=== PATIENT | male | born 1965 | race Two or more races ===

== ENCOUNTER 2020-02-25 14:47 | Emergency (ER) | payer SELFPAY ==
[~2020-02-25] VITALS: Ht 177.8 cm; Wt 95.4 kg
--- NOTE | 2020-02-25 15:24 | PHYS DOC ---
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 Patient reports having left-sided rib chest pain for approximately 4 years, he has been seen by chiropractors and various clinics over the years and has been told that this is musculoskeletal pain. 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 Patient states he had just taken his lisinopril prior to arrival to his clinic visit. Patient states that the clinic staff was concerned about his hypertension and sent him straight to the emergency department today. Patient reports that he does have left-sided chest pain that has been going on for greater than 40 years he currently rates at a 4/10 on a 1-10 pain scale, patient states that if he does not take Motrin his pain will increase to a 6/10 with a 10 pain scale. Patient denies any shortness of breath, chest palpitations, diaphoresis, nausea, vomiting, diarrhea, cough, recent fever chills, congestion, or nasal congestion. Patient denies any sore throat. Patient denies any dizziness. 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 Patient denies any numbness or tingling to his extremities, patient denies any weaknesses, patient denies being around anybody with the COVID-19 virus and does not wish to be checked today for the COVID-19 virus. Patient denies any homicidal or suicidal ideation. Patient reiterates that this is the same pain that he has had for the past 4 years. Review of Systems: Review of Systems: 14 body systems of review of systems have been reviewed. See HPI for pertinent positives and negative responses, otherwise all other systems are negative, nonpertinent or noncontributory. Heart Score: HEART Score for Chest Pain: HEART Score for Chest Pain Response (Comments) Value History Slighlty/Non-Suspicious 0 ECG Normal 0 Age >45 - < 65 1 Risk Factors 1 or 2 Risk Factors 1 Troponin < Normal Limit 0 Total 2 Risk Factors: Risk Factors: DM, Current or recent (<one month) smoker, HTN, HLP, family history of CAD, obesity. Risk Scores: Score 0 - 3: 2.5% MACE over next 6 weeks - Discharge Home Score 4 - 6: 20.3% MACE over next 6 weeks - Admit for Clinical Observation Score 7 - 10: 72.7% MACE over next 6 weeks - Early Invasive Strategies Family History: Family History: Patient states mother is healthy, patient states father at age 85 of a sudden heart attack and had a history of lung cancer. Current Medications: Patient reports taking 5 mg lisinopril daily. Allergies: Allergies: Patient denies allergies to medications Physical Exam: PE: Constitutional: Well developed, well nourished, no acute distress, non-toxic appearance. HENT: Normocephalic, atraumatic, bilateral external ears normal, oropharynx moist, no oral exudates, nose normal. Eyes: PERRLA, EOMI, conjunctiva normal, no discharge. Neck: Normal range of motion, no tenderness, supple, no stridor. Cardiovascular:Heart rate regular rhythm, no murmur, heart sounds S1-S2 to auscultation. Lungs & Thorax: Bilateral breath sounds clear to auscultation all lung river, no adventitious lung sounds appreciated. Abdomen: Bowel sounds normal, soft, no tenderness, no masses, no pulsatile masses. Skin: Warm, dry, no erythema, no rash. Back: No tenderness, no CVA tenderness. Extremities: No tenderness, no cyanosis, no clubbing, ROM intact, no edema. Neurologic: Alert and oriented X 3, normal motor function, normal sensory function, no focal deficits noted. Psychologic: Affect normal, judgement normal, mood normal. Musculoskeletal: Left lateral ribs 9 and 10 painful to palpation, no crepitus noted, no subcu air appreciated, no bruising noted no ecchymotic areas noted. There was increased pain to this area with passive range of motion of the left upper extremity, and deep inhalation/exhalation Current Patient Data: Labs: Laboratory Tests Test 02/25/20 15:30 White Blood Count 5.9 x10^3/uL Red Blood Count 4.94 x10^6/uL Hemoglobin 15.2 g/dL Hematocrit 43.3 % Mean Corpuscular Volume 88 fL Mean Corpuscular Hemoglobin 31 pg Mean Corpuscular Hemoglobin Concent 35 g/dL Red Cell Distribution Width 12.9 % Platelet Count 166 x10^3/uL Neutrophils (%) (Auto) 58 % Lymphocytes (%) (Auto) 31 % Monocytes (%) (Auto) 8 % Eosinophils (%) (Auto) 3 % Basophils (%) (Auto) 1 % Neutrophils # (Auto) 3.4 x10^3/uL Lymphocytes # (Auto) 1.8 x10^3/uL Monocytes # (Auto) 0.5 x10^3/uL Eosinophils # (Auto) 0.2 x10^3/uL Basophils # (Auto) 0.0 x10^3/uL Sodium Level 138 mmol/L Potassium Level 4.1 mmol/L Chloride Level 104 mmol/L Carbon Dioxide Level 29 mmol/L Anion Gap 5 Blood Urea Nitrogen 12 mg/dL Creatinine 0.6 mg/dL Estimated GFR (Cockcroft-Gault) 140.4 BUN/Creatinine Ratio 20 Glucose Level 86 mg/dL Calcium Level 9.4 mg/dL Magnesium Level 2.2 mg/dL Total Bilirubin 2.0 mg/dL Aspartate Amino Transf (AST/SGOT) 26 U/L Alanine Aminotransferase (ALT/SGPT) 31 U/L Alkaline Phosphatase 109 U/L Troponin I Quantitative < 0.017 ng/mL Total Protein 7.6 g/dL Albumin 4.0 g/dL Albumin/Globulin Ratio 1.1 EKG: EKG: EKG performed by ED nursing staff at 1520, shows a normal sinus rhythm without ectopy, heart rate 97, IA interval 0.120, QTc interval 0.449, no acute STEMI noted no ACS noted no acute ischemia noted, EKG interpreted by ED attending Dr. Roberson. Radiology/Procedures: Radiology/Procedures: STATUS: REG ER ORD. PHYSICIAN: MENDY DORAN APRN REASON: CHEST PAIN LEFT SIDE PROCEDURE: CHEST PA & LATERAL Two-view chest dated 02/25/2020. No comparison available. CLINICAL INDICATION: Left-sided chest pain. FINDINGS: PA and lateral views obtained. Heart and mediastinal contours within normal limits. Lungs are clear. No consolidation or pleural effusion. No pneumothorax. IMPRESSION: No acute radiographic abnormality. Electronically signed by: Mendy Rios MD (02/25/2020 3:44 PM) [id number] DICTATED and SIGNED BY: MENDY RIOS MD DATE: 02/25/20 [id number] Course & Med Decision Making: Course & Med Decision Making Pertinent Labs and Imaging studies reviewed. (See chart for details) 55-year-old male, vital signs stable, reports emergency department seeking a work excuse for his left-sided chest pain he has had for the last 4 years, patient reports that his pain is relieved with taking ibuprofen however he does not have any to take at this time. Patient reports that he would not have shot today had a event for his routine appointment at the local clinic for his refill of 5 mg lisinopril for his history of hypertension. He had a hypertensive blood pressure of 165/110 there and they recommended he come straight to the emergency department for evaluation. Related to patient's risk factors, and ER work-up to rule out cardiac or pulmonary discrepancy was started. Patient's heart score was 2, cardiac enzymes were negative, EKG was negative for acute process, reexamination of patient found patient in a nontoxic appearance, stated his pain was relieved by the ordered IM Toradol medication. With the assistance of the guys mills telephone interpretation service patient discharge instructions were reviewed, patient gave verbal understanding of discharge instructions, home use of prescribed ibuprofen, return to ER precautions and concerns, work excuse for 2 days, patient had no further questions or concerns, patient discharged home without incident. Vital signs remained stable at discharge, 136/74 right upper extremity NIBP. Diagnosis left-sided rib pain, chest wall pain, unlikely ACS, STEMI, cardiac ischemia, pneumonia, URI. Dragon Disclaimer: Leonardo Disclaimer: This electronic medical record was generated, in whole or in part, using a voice recognition dictation system. Departure Departure Impression: Primary Impression: Rib pain on left side Additional Impression: Chest wall pain Disposition: 01 DC HOME SELF CARE/HOMELESS Condition: GOOD Referrals: UNKNOWN PCP NAME (PCP) Patient Instructions: Chest Wall Pain Additional Instructions: You have been seen today for chest pain, we have done an extensive work-up of your cardiopulmonary systems, there was no signs of myocardial infarction, myocardial ischemia, pneumonia, or a upper respiratory infection. You have been diagnosed with chest wall pain, you have been given a prescription for 600 mg Motrin to use up to 3 times a day as needed for pain, you have been given a work excuse for 2 days. Please follow-up with your personal doctor for further evaluation of your chest wall pain, return to the emergency department for worsening symptoms or other concerns. EMERGENCY DEPARTMENT GENERAL DISCHARGE INSTRUCTIONS Thank you for coming to [facility] Emergency Department (ED) today and trusting us with you care. We trust that you had a positive experience in our Emergency Department. If you wish to speak to the department management, you may call the Director at [phone]. YOUR FOLLOW UP INSTRUCTIONS ARE FOLLOWS: 1. Do you have a private Doctor? If you do not have a private doctor, please ask for a resource list of physicians or clinics that may be able to assist you with follow up care. 2. The Emergency Physicain has interpreted your x-rays. The X-Ray specialist will also review them. If there is a change in the findings, you will be notified in 48 hours when at all possible. 3. A lab test or culture has been done, your results will be reviewed and you w ill be notified if you need a change in treatment. ADDITIONAL INSTRUCTIONS AND INFORMATION: 1. Your care today has been supervised by a physician who is specially trained in emergency care. Many problems require more than one evaluation for a complete diagnosis and treatment. We recommend that you schedule your follow up appointment as recommended to ensure complete treatment of you illness or injury. If you are unable to obtain follow up care and continue to have a problem, or if your condition worsens, we recommend that you return to the ED. 2. We are not able to safely determine your condition over the phone nor are we able to give sound medical advice over the phone. For these safety reasons, if you call for medical advice we will ask you to come to the ED for further evaluation. 3. If you have any questions regarding these discharge instructions please call the ED at [phone]. SAFETY INFORMATION: In the interest of safety, wellness, and injury prevention; we encourage you to wear your sealbelt, if you smoke; quite smoking, and we encourage family to use a protective helmet for bicycling and other sporting events that present an increased risk for head injury. IF YOUR SYMPTOMS WORSEN OR NEW SYMPTOMS DEVELOP, OR YOU HAVE CONCERNS ABOUT YOUR CONDITION; OR IF YOUR CONDITION WORSENS WHILE YOU ARE WAITING FOR YOUR FOLLOW UP APPOINTMENT; EITHER CONTACT YOUR PRIMARY CARE DOCTOR, THE PHYSICIAN WHOSE NAME AND NUMBER YOU WERE GIVEN, OR RETURN TO THE ED IMMEDIATELY. Scripts Ibuprofen (Ibuprofen) 600 Mg Tablet 600 MG PO PRN Q8HRS PRN for PAIN, #30 TAB 0 Refills Prov: MENDY DORAN APRN 02/25/20 MENDY DORAN APRN Feb 25, 2020 15:24
--- NOTE | 2020-02-25 15:47 | RAD ---
Two-view chest dated 02/25/2020. No comparison available. CLINICAL INDICATION: Left-sided chest pain. FINDINGS: PA and lateral views obtained. Heart and mediastinal contours within normal limits. Lungs are clear. No consolidation or pleural effusion. No pneumothorax. IMPRESSION: No acute radiographic abnormality. Electronically signed by: Narendra Noble MD (02/25/2020 3:44 PM) [id number]
[2020-02-25 16:07] LABS: BASO % 1 % (0-3); EOS # 0.2 x10^3/uL (0.0-0.7); EOS % 3 % (0-3); HEMATOCRIT 43.3 % (39.0-53.0); HEMOGLOBIN 15.2 g/dL (13.0-17.5); LYMPH # 1.8 x10^3/uL (1.0-4.8); LYMPH % 31 % (24-48); MEAN CORPUSCULAR HEMOGLOBIN 31 pg (25-35); MEAN CORPUSCULAR HGB CONC 35 g/dL (31-37); MEAN CORPUSCULAR VOLUME 88 fL (79-100); MONO # 0.5 x10^3/uL (0.0-1.1); MONO % 8 % (0-9); NEUT # 3.4 x10^3/uL (1.8-7.7); NEUT % 58 % (31-73); PLATELET COUNT 166 x10^3/uL (140-400); RED BLOOD COUNT 4.94 x10^6/uL (4.30-5.70); RED CELL DISTRIBUTION WIDTH 12.9 % (11.5-14.5); WHITE BLOOD COUNT 5.9 x10^3/uL (4.0-11.0)
[2020-02-25 16:22] LABS: CALCIUM 9.4 mg/dL (8.5-10.1); CREATININE 0.6 mg/dL (0.7-1.3); GFR 140.4; POTASSIUM 4.1 mmol/L (3.5-5.1)
[2020-02-25 16:37] LABS: ALBUMIN/GLOBULIN RATIO 1.1 (1.0-1.7); MAGNESIUM 2.2 mg/dL (1.8-2.4); TOTAL PROTEIN 7.6 g/dL (6.4-8.2)
--- NOTE | 2020-02-25 16:59 | EKG ---
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
[2020-02-25] MEDS ORDERED: KETOROLAC 60 MG/2 ML VIAL. IM ONE (17:15)
[2020-02-25 17:16] VITALS: BP 136/77
[2020-02-25] MEDS ORDERED: IBUP-985 PO (17:36)
== END 2020-02-25 17:48 | disposition home or self-care (01) ==
LOC: ER 14:47
DX: R07.81 Pleurodynia (principal)
CPT/HCPCS: 36415; 71046; 80053; 83735; 84484; 85025; 93005; 96372; 99285; J1885

== ENCOUNTER 2021-05-30 15:32 | Emergency (ER) | payer SELFPAY ==
[~2021-05-30] VITALS: Ht 165.1 cm; Wt 79.0 kg
[~2021-05-30 15:32] MED LIST: IBUP-985 PO
[2021-05-30 16:17] LABS: BASO # 0.1 x10^3/uL (0.0-0.2); BASO % 1 % (0-3); EOS # 0.2 x10^3/uL (0.0-0.7); EOS % 3 % (0-3); HEMATOCRIT 43.5 % (39.0-53.0); HEMOGLOBIN 14.8 g/dL (13.0-17.5); LYMPH # 2.2 x10^3/uL (1.0-4.8); LYMPH % 32 % (24-48); MEAN CORPUSCULAR HEMOGLOBIN 30 pg (25-35); MEAN CORPUSCULAR HGB CONC 34 g/dL (31-37); MEAN CORPUSCULAR VOLUME 87 fL (79-100); MONO # 0.6 x10^3/uL (0.0-1.1); MONO % 9 % (0-9); NEUT # 3.6 x10^3/uL (1.8-7.7); NEUT % 55 % (31-73); PLATELET COUNT 173 x10^3/uL (140-400); RED BLOOD COUNT 4.99 x10^6/uL (4.30-5.70); RED CELL DISTRIBUTION WIDTH 12.9 % (11.5-14.5); WHITE BLOOD COUNT 6.7 x10^3/uL (4.0-11.0)
--- NOTE | 2021-05-30 16:29 | PHYS DOC ---
Past Medical History Past Medical History: Anxiety, Hypertension Past Surgical History: No Surgical History Smoking Status: Never Smoker Alcohol Use: Rarely General Adult EDM: Chief Complaint: HEADACHE HPI: HPI: Patient is a 56 year old male with history of anxiety, hypertension, presented to the ED today complaining of 6 out of 10 headache described as palpitations in his head, symptoms have been going on intermittently since this week. Patient states the headache was on the left side notes on the right side. Denies anything exacerbating or relieving the headache. Reports nausea with no vomiting. Denies being a thunderclap headache. States the headache was gradual and has been intermittent. Automation Application Engineer line used for Portuguese Review of Systems: Review of Systems: Constitutional: Denies fever or chills. [] Eyes: Denies change in visual acuity. [] HENT: Denies nasal congestion or sore throat. [] Respiratory: Denies cough or shortness of breath. [] Cardiovascular: Denies chest pain or edema. [] GI: Reports nausea. Denies abdominal pain, vomiting, bloody stools or diarrhea. [] : Denies dysuria. [] Musculoskeletal: Denies back pain or joint pain. [] Integument: Denies rash. [] Neurologic: Reports headache, denies headache, focal weakness or sensory changes. [] Psychiatric: Denies depression or anxiety. [] Heart Score: C/O Chest Pain: N/A Risk Factors: Risk Factors: DM, Current or recent (<one month) smoker, HTN, HLP, family history of CAD, obesity. Risk Scores: Score 0 - 3: 2.5% MACE over next 6 weeks - Discharge Home Score 4 - 6: 20.3% MACE over next 6 weeks - Admit for Clinical Observation Score 7 - 10: 72.7% MACE over next 6 weeks - Early Invasive Strategies Current Medications: Current Medications Medications (Trade) Dose Ordered Sig/[place] Start Time Stop Time Status Last Admin Dose Admin Dexamethasone Sodium Phosphate (Decadron) 10 mg 1X ONCE 05/30/21 16:30 05/30/21 16:31 Ondansetron HCl (Zofran) 4 mg 1X ONCE 05/30/21 16:30 05/30/21 16:31 Sodium Chloride 1,000 ml @ 1,000 mls/hr 1X ONCE 05/30/21 16:30 05/30/21 17:29 Allergies: Allergies: Allergies Coded Allergies Type Severity Reaction Last Updated Verified No Known Drug Allergies 02/25/20 No Physical Exam: PE: Constitutional: Well developed, well nourished, no acute distress, non-toxic appearance. [] HENT: Normocephalic, atraumatic, bilateral external ears normal, oropharynx moist, no oral exudates, nose normal. [] Eyes: PERRLA, EOMI, conjunctiva normal, no discharge. [] Neck: Normal range of motion, no tenderness, supple, no stridor. [] Cardiovascular:Heart rate regular rhythm, no murmur [] Lungs & Thorax: Bilateral breath sounds clear to auscultation [] Abdomen: Bowel sounds normal, soft, no tenderness, no masses, no pulsatile masses. [] Skin: Warm, dry, no erythema, no rash. [] Back: No tenderness, no CVA tenderness. [] Extremities: No tenderness, no cyanosis, no clubbing, ROM intact, no edema. [] Neurologic: Alert and oriented X 3, normal motor function, normal sensory function, no focal deficits noted. Cranial nerves II through XII intact Psychologic: Affect normal, judgement normal, mood normal. [] Current Patient Data: Labs: Laboratory Tests Test 05/30/21 16:02 White Blood Count 6.7 x10^3/uL (4.0-11.0) Red Blood Count 4.99 x10^6/uL (4.30-5.70) Hemoglobin 14.8 g/dL (13.0-17.5) Hematocrit 43.5 % (39.0-53.0) Mean Corpuscular Volume 87 fL (79-100) Mean Corpuscular Hemoglobin 30 pg (25-35) Mean Corpuscular Hemoglobin Concent 34 g/dL (31-37) Red Cell Distribution Width 12.9 % (11.5-14.5) Platelet Count 173 x10^3/uL (140-400) Neutrophils (%) (Auto) 55 % (31-73) Lymphocytes (%) (Auto) 32 % (24-48) Monocytes (%) (Auto) 9 % (0-9) Eosinophils (%) (Auto) 3 % (0-3) Basophils (%) (Auto) 1 % (0-3) Neutrophils # (Auto) 3.6 x10^3/uL (1.8-7.7) Lymphocytes # (Auto) 2.2 x10^3/uL (1.0-4.8) Monocytes # (Auto) 0.6 x10^3/uL (0.0-1.1) Eosinophils # (Auto) 0.2 x10^3/uL (0.0-0.7) Basophils # (Auto) 0.1 x10^3/uL (0.0-0.2) Laboratory Tests 05/30/21 16:02 Vital Signs: Vital Signs Date Time Temp Pulse Resp B/P (MAP) Pulse Ox O2 Delivery O2 Flow Rate FiO2 05/30/21 15:35 97.8 67 20 138/89 (105) 98 Room Air 97.8 EKG: EKG: [] Radiology/Procedures: Radiology/Procedures: []PROCEDURE: CT HEAD WO CONTRAST Exam performed: CT scan of the head without contrast. Date of Service: 05/30/2021. Comparison: None available. Clinical History: Headache. Technique: Helical acquisitions are obtained from the foramen magnum to the vertex without intravenous administration of contrast. Findings: The ventricles are midline without evidence of dilatation. Normal espinoza-white differentiation is maintained. There is no extra axial fluid collection, intraparenchymal hemorrhage or mass lesion. The visualized portions of the orbits, paranasal sinuses and the mastoid air cells appear clear. The calvarium is intact. Impression: 1. No acute intracranial process detected. RS Compliance Statement: One or more of the following individualized dose reduction techniques were utilized for this examination: 1. Automated exposure control 2. Adjustment of the mA and/or kV according to patient size 3. Use of iterative reconstruction technique Electronically signed by: Jacquelin Junior MD (05/30/2021 5:13 PM) [facility] DICTATED and SIGNED BY: JACQUELIN JUNIOR MD DATE: 05/30/211711 PROCEDURE: PORTABLE CHEST 1V XR CHEST 1V History: Reason: headache,n / Spl. Instructions: / History: Comparison: February 25, 2020 Findings: Mild ill-defined bibasilar opacities, left greater than right. No pleural effusion. No pneumothorax. Normal heart size. Impression: 1. Mild ill-defined bibasilar opacities, most likely atelectasis. If persistent clinical concern, recommend follow-up. Electronically signed by: Eddi Mac DO (05/30/2021 4:37 PM) [facility] DICTATED and SIGNED BY: EDDI MAC DO DATE: 05/30/211636 Course & Med Decision Making: Course & Med Decision Making Pertinent Labs and Imaging studies reviewed. (See chart for details) This a 56-year-old male patient presented today complaining of a headache intermittently since . Vitals on arrival to the ED temperature 97.8, heart rate 67, respiration 20 on room air, blood pressure 138/89, O2 sats 98% CT of the head is negative, chest x-ray is negative, lab work including cardiac work-up is negative. Patient was given Decadron and a liter of fluid. Feeling better. Discharged home. Instructed to follow-up with PCP and neurologist. Leonardo Disclaimer: Dragyang Disclaimer: This electronic medical record was generated, in whole or in part, using a voice recognition dictation system. Departure Departure Impression: Primary Impression: Headache Qualified Codes: R51.9 - Headache, unspecified Disposition: HOME / SELF CARE / HOMELESS Condition: STABLE Referrals: UNKNOWN PCP NAME (PCP) ASHUTOSH HAN MD follow up with your doctor or the provided doctor in one week Patient Instructions: General Headache Without Cause Additional Instructions: You were evaluated in the emergency room for a headache, we did a CT of your head which is negative for any acute findings. We did lab work which were negative for any acute findings. Please follow-up with your primary care doctor or the provided doctor in the next 1 to 2 weeks. Scripts Naproxen (NAPROXEN) 500 Mg Tablet 1 TAB PO BID for pain, #14 TAB 0 Refills Prov: JODY GONZALEZ ASSISTANT SCIENTIST 05/30/21 Methylprednisolone (MEDROL) 4 Mg Tab.ds.pk 1 PKG PO UD, #1 PKG Prov: JODY GONZALEZ ASSISTANT SCIENTIST 05/30/21 Cyclobenzaprine Hcl (CYCLOBENZAPRINE HCL) 10 Mg Tablet 1 TAB PO TID, #30 TAB Prov: JODY GONZALEZ ASSISTANT SCIENTIST 05/30/21 JODY GONZALEZ ASSISTANT SCIENTIST May 30, 2021 16:29
[2021-05-30] MEDS ORDERED: IV NORMAL SALINE 1000ML BAG 1,000 ML IV ONE (16:30)
[2021-05-30] MEDS ORDERED: DEXAMETHASONE SOD PHOS 20 MG/5 ML VIAL. IV ONE (16:30)
[2021-05-30] MEDS ORDERED: ONDANSETRON PF 4 MG/2 ML VIAL. IVP ONE (16:30)
[2021-05-30 16:32] LABS: CALCIUM 9.3 mg/dL (8.5-10.1); GFR 77.6; POTASSIUM 4.1 mmol/L (3.5-5.1)
[2021-05-30 16:38] LABS: ALBUMIN 3.9 g/dL (3.4-5.0); ALBUMIN/GLOBULIN RATIO 0.9 (1.0-1.7); MAGNESIUM 2.2 mg/dL (1.8-2.4); TOTAL BILIRUBIN 1.4 mg/dL (0.2-1.0); TOTAL PROTEIN 8.2 g/dL (6.4-8.2)
--- NOTE | 2021-05-30 16:40 | RAD ---
XR CHEST 1V History: Reason: headache,n / Spl. Instructions: / History: Comparison: February 25, 2020 Findings: Mild ill-defined bibasilar opacities, left greater than right. No pleural effusion. No pneumothorax. Normal heart size. Impression: 1. Mild ill-defined bibasilar opacities, most likely atelectasis. If persistent clinical concern, re commend follow-up. Electronically signed by: Eddi Mac DO (05/30/2021 4:37 PM) [facility]
--- NOTE | 2021-05-30 17:15 | RAD ---
Exam performed: CT scan of the head without contrast. Date of Service: 05/30/2021. Comparison: None available. Clinical History: Headache. Technique: Helical acquisitions are obtained from the foramen magnum to the vertex without intravenou s administration of contrast. Findings: The ventricles are midline without evidence of dilatation. Normal espinoza-white differentiation is maint ained. There is no extra axial fluid collection, intraparenchymal hemorrhage or mass lesion. The vi sualized portions of the orbits, paranasal sinuses and the mastoid air cells appear clear. The adolfo rium is intact. Impression: 1. No acute intracranial process detected. PQRS Compliance Statement: One or more of the following individualized dose reduction techniques were utilized for this examinat ion: 1. Automated exposure control 2. Adjustment of the mA and/or kV according to patient size 3. Use of iterative reconstruction technique Electronically signed by: Jacquelin Junior MD (05/30/2021 5:13 PM) [facility]
[2021-05-30] MEDS ORDERED: NAPR-514 PO (17:29)
[2021-05-30] MEDS ORDERED: METH4TAB2 PO (17:29)
[2021-05-30] MEDS ORDERED: CYCL10TA19 PO (17:29)
[2021-05-30 17:40] VITALS: BP 150/94
[2021-05-30] MEDS ORDERED: KETOROLAC 30 MG/ML VIAL. IVP ONE (18:00)
--- NOTE | 2021-05-30 19:03 | EKG ---
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
== END 2021-05-30 18:13 | disposition home or self-care (01) ==
LOC: ER 15:32
DX: R51.9 Headache, unspecified (principal); R11.0 Nausea; I10 Essential (primary) hypertension
CPT/HCPCS: 70450; 71045; 80053; 83735; 83880; 84484; 85025; 93005; 96361; 96374; 96375; 99285; J1100; J1885; J2405; J7030

== ENCOUNTER → 2021-07-08 | Outpatient (CLI) | payer OTHER ==
[~2021-07-08] MED LIST changes: +CYCL10TA19 PO; +METH4TAB2 PO; +NAPR-514 PO
--- NOTE | 2021-07-08 12:35 | RAD ---
EXAMINATION: MRI LEFT KNEE WITHOUT IV CONTRAST CLINICAL HISTORY: Left knee pain and instability, concern for meniscal tear. TECHNIQUE: Multiplanar multisequential images obtained through the knee without intravenous contrast. COMPARISON: None FINDINGS: MENISCI: Medial Meniscus: Horizontal tear in the posterior horn and body with slight extrusion of the body Lateral Meniscus: Intact LIGAMENTS: ACL: Intact PCL: Intact MCL: Intact LCL Complex: Intact CARTILAGE: Medial Femoral Condyle: Moderate sized area(s) of predominantly low grade (less than 50% thickness) c artilage loss and or fissuring with smaller area(s) of high grade (greater than 50% thickness) cartil age loss and or fissuring in the posterior weightbearing portion of the condyle and posterior condyle Medial Tibial Plateau: Normal Lateral Femoral Condyle: Normal Lateral Tibial Plateau: Normal Patella: Small to moderate areas(s) of predominantly low grade (less than 50% thickness) cartilage lo ss and or fissuring with smaller area(s) of high grade (greater than 50% thickness) cartilage loss an d or fissuring Trochlea: Normal TENDONS: Distal quadriceps and patellar tendons intact. Popliteus tendon intact. BONES AND MARROW: No evidence of acute fracture or suspicious marrow replacing process. MUSCLES: Muscle bulk and signal intensity within normal limits. JOINT FLUID AND SYNOVIUM: Moderate joint effusion. No synovitis. No Wills's cyst. IMPRESSION: Medial meniscus tear with slight extrusion of the body. Mild chondral wear in the medial femoral condyle and patella. Electronically signed by: Ton Long DO (07/08/2021 12:32 PM) [id number]
== END ==
LOC: MRI 09:36
PROVIDERS: ATTEND Nurse Practitioner Primary Care
DX: S83.242A Other tear of medial meniscus, current injury, left knee, initial encounter (principal); M25.462 Effusion, left knee; M25.862 Other specified joint disorders, left knee; X58.XXXA Exposure to other specified factors, initial encounter; Y93.89 Activity, other specified; Y92.89 Other specified places as the place of occurrence of the external cause; Y99.8 Other external cause status
CPT/HCPCS: 73721